=== PATIENT | female | born 1970 | race Caucasian/White ===

== ENCOUNTER 2024-12-15 10:00 | Day surgery (SDC) | payer OTHER ==
[2024-12-09 08:49] LABS: BASO % 0.6 % (0.1-1.2); EOS # 0.42 (0.04-0.54); EOS % 6.2 % (0.7-7.0); LYMPH # 3.15 (1.18-3.74); LYMPH % 46.5 % (19.3-53.1); MEAN PLATELET VOLUME 9.70 fl (9.4-12.4); MONO # 0.46 (0.24-0.82); MONO % 6.8 % (4.7-12.5); NEUT # 2.69 (1.56-6.13); NEUT % 39.8 % (34.0-71.1); RED CELL DISTRIBUTION WIDTH 12.1 % (11.6-14.4)
[2024-12-09 08:52] LABS: URINE APPEARANCE Clear; URINE BILIRRUBIN Negative (NEGATIVE); URINE BLOOD Negative; URINE COLOR Yellow; URINE GLUCOSE Negative (NEGATIVE); URINE KETONE Negative (NEGATIVE); URINE LEUKOCYTE Negative; URINE NITRATE Negative; URINE PROTEIN Negative (NEGATIVE); URINE UROBILINOGEN 0.2 E.U./dl
[2024-12-09 08:55] LABS: URINE BACTERIA 917.9 uL (0.0-1933); URINE EPITHELIAL CELLS 11.6 uL (0.0-38.8); URINE RBC 6.5 uL (0.0-20.8); URINE WBC 15.5 uL (0.0-23.2)
[2024-12-09 09:09] LABS: INR < 0.93
[2024-12-09 09:10] LABS: URINE CAST 0.14 uL (0.0-1.40)
[2024-12-09 09:40] LABS: ALT/SGPT 22.0 U/L (12-78); AST/SGOT 20.0 U/L (15-37); BILIRUBIN TOTAL 0.36 mg/dL (0.3-1.2); BUN CREA RATIO 31.0 (7.0-25.0); CREATININE SERUM 0.51 mg/dL (0.55-1.02); GFR 125.2; GLOBULINA 3.6 G/DL (2.4-3.5); GLUCOSE FASTING 97.0 mg/dL (65-100); OSMOLALITY SERUM 288.0 MOSM/KG (275-295)
[2024-12-09 14:18] VITALS: BP 105/72
[~2024-12-15] VITALS: Ht 152.4 cm; Wt 84.4 kg
[~2024-12-15 10:00] MED LIST: BUSPIRONE HCL5 MG PO; CELEBREX; CELEXA40 MG PO; CLONAZEPAM1 MG PO; TRAZODONE HCL150 MG PO
[2024-12-15] MEDS ORDERED: CEFAZOLIN SODIUM 1,000 MG VIAL ONE (10:42)
== END 2024-12-15 17:05 | disposition home or self-care (01) ==
LOC: CIR.AMB 10:00
PROVIDERS: ATTEND Surgery
DX: K81.1 Chronic cholecystitis (principal)